=== PATIENT | female | born 1945 | race Caucasian/White ===

== ENCOUNTER 2021-12-04 16:13 | Outpatient (CLI) | payer MEDICARE | END 2021-12-04 16:14 | disposition home or self-care (01) | LOC: BICRAD 16:13 | PROVIDERS: ATTEND Family Medicine | DX: R06.00 Dyspnea, unspecified (principal); R91.8 Other nonspecific abnormal finding of lung field | CPT/HCPCS: 36415; 71046; 80053; 83880; 85025 ==

== ENCOUNTER 2023-06-10 13:31 | Outpatient (CLI) | payer MEDICARE ==
[2023-06-10 15:24] LABS: #Eosinphils 0.1 10x3/uL (0.0-0.5); #Monocytes 0.3 10x3/uL (0.0-1.1); #Neutrophils 5.1 10x3/uL (1.5-8.4); %Basophils 0.6 % (0.0-2.0); %Eosinophils 0.8 % (0.0-6.0); %Lymphocytes 11.9 % (18.0-47.0); %Monocytes 4.3 % (0.0-10.0); %Neutrophils 81.3 % (40.0-75.0); Hemoglobin 11.8 g/dL (12.0-15.5); Mean Corpuscular HGB CONC 34.7 g/dL (32.0-36.0); Mean Corpuscular Hemoglobin 31.4 pg (27.0-33.0); Mean Corpuscular Volume 90.4 fl (81.6-98.3); Mean Platelet Volume 9.7 fl (7.4-10.4); Platelet Count 248 10x3/uL (150-450); RBC Distribution Width 16.1 % (11.5-14.5); Red Blood Cell (RBC) Count 3.76 10x6/uL (3.90-5.03); White Blood Cell (WBC) Count 6.2 10x3/uL (3.5-10.5)
[2023-06-10 15:37] LABS: Anion Gap 16 mmol/L (10-20); BUN (Urea Nitrogen) 21 mg/dL (9.8-20.1); Calc. Creatinine Clearance 0 mL/min (70-130); Calcium 9.7 mg/dL (7.8-10.44); Carbon Dioxide 28 mmol/L (23-31); Chloride 99 mmol/L (98-107); Estimated GFR 55; Glucose 150 mg/dL (83-110); Potassium 3.3 mmol/L (3.5-5.1); Sodium 140 mmol/L (136-145)
== END 2023-06-10 13:32 | disposition home or self-care (01) ==
LOC: LABBT 13:31
PROVIDERS: ATTEND Orthopaedic Surgery Hand Surgery
DX: Z01.818 Encounter for other preprocedural examination (principal); M65.331 Trigger finger, right middle finger; M72.0 Palmar fascial fibromatosis [Dupuytren]
CPT/HCPCS: 80048; 85025; 93005; 93010

== ENCOUNTER 2023-06-16 06:17 | Day surgery (SDC) | payer MEDICARE ==
[2023-06-10 14:13] VITALS: BMI 27.8
[2023-06-16] MEDS ORDERED: Bacitracin Zinc Ointment 30 gm TUBE ONE (06:36)
[2023-06-16] MEDS ORDERED: Bupivacaine PF 0.5% 30 ML VIAL ONE (06:36)
[2023-06-16] MEDS ORDERED: CEFAZOLIN 2 GM VIAL ONE (07:02)
[2023-06-16] MEDS ORDERED: Sodium Chloride 0.9% 100 ML ONE (07:02)
[2023-06-16] MEDS ORDERED: PROPOFOL 20 ML ONE (07:05)
[2023-06-16] MEDS ORDERED: Lidocaine 1% PF 5 ML VIAL ONE (07:20)
[2023-06-16] MEDS ORDERED: Ondansetron PF 4 MG/2 ML Vial ONE (07:25)
[2023-06-16] MEDS ORDERED: Dexamethasone 20 MG/5 ML VIAL ONE (07:25)
[2023-06-16] MEDS ORDERED: ePHEDrine Sulfate 50 MG/10 ML VIAL ONE (07:58)
[2023-06-16] MEDS ORDERED: Ketorolac Tromethamine 30 MG (1 mL) VIAL ONE (09:40)
[2023-06-16] MEDS ORDERED: Phenylephrine 10 MG/ML VIAL ONE (09:50)
== END 2023-06-16 10:22 | disposition home or self-care (01) ==
LOC: SDC 06:17
PROVIDERS: ATTEND Orthopaedic Surgery Hand Surgery
PROC: 0JNJ0ZZ Release Right Hand Subcutaneous Tissue and Fascia, Open Approach (ICD-10-PCS; principal; 2023-06-16)
DX: M65.331 Trigger finger, right middle finger (principal); M72.0 Palmar fascial fibromatosis [Dupuytren]; G56.01 Carpal tunnel syndrome, right upper limb; M18.0 Bilateral primary osteoarthritis of first carpometacarpal joints; M19.041 Primary osteoarthritis, right hand; M19.042 Primary osteoarthritis, left hand; J32.9 Chronic sinusitis, unspecified; Z90.89 Acquired absence of other organs; Z90.710 Acquired absence of both cervix and uterus; Z79.890 Hormone replacement therapy; Z79.899 Other long term (current) drug therapy; Z88.5 Allergy status to narcotic agent; Z88.8 Allergy status to other drugs, medicaments and biological substances
CPT/HCPCS: 88304; J0665; J1100; J1885; J2371; J2405; J2704; J3490